=== PATIENT | male | born 1965 | race Asian ===

== ENCOUNTER → 2021-07-06 07:53 | Outpatient (CLI) | payer OTHER, SELFPAY ==
[2021-07-06 19:56] LABS: COVID19 - ORCAS (NP or Nasal) Negative (Negative)
== END ==
PROVIDERS: PCP Family Medicine; Visit Provider Physician Assistant
DX: Z01.812 Encounter for preprocedural laboratory examination (principal); Z20.822 Contact with and (suspected) exposure to COVID-19
CPT/HCPCS: U0003